=== PATIENT | female | born 1965 | race African-American/Black ===

== ENCOUNTER 2017-09-25 16:47 | Emergency (ER) | payer MEDICAID, OTHER ==
[~2017-09-25] VITALS: Ht 154.9 cm; Wt 79.5 kg
[~2017-09-25 16:47] MED LIST: CHOL20002 PO; DIVA500T35 PO; GABA-531 PO; METF500T PO; SERT50TA12 PO
[2017-09-25 17:18] LABS: GLUCOSE,POINT OF CARE 128 MG/DL (70-110)
[2017-09-25 17:53] LABS: BASOPHILS # (AUTO) 0.04 K/uL (0.00-0.20); EOSINOPHILS # (AUTO) 0.05 K/uL (0.00-0.70); EOSINOPHILS % (AUTO) 1.22 % (1.0-6.0); HEMATOCRIT 41.5 % (36-46); HEMOGLOBIN 13.2 g/dL (12.0-16.0); LYMPHOCYTES # (AUTO) 1.9 K/uL (1.0-4.8); LYMPHOCYTES % (AUTO) 44.6 % (22.0-44.0); MEAN CORPUSCULAR HGB CONC 31.7 G/dL (31.0-37.0); MEAN CORPUSCULAR VOLUME 88 fL (80-100); MONOCYTES # (AUTO) 0.3 K/uL (0.1-1.0); MONOCYTES % (AUTO) 7.3 % (2.0-9.0); NEUTROPHILS % (AUTO) 45.8 % (40.0-70.0); PLATELET COUNT (AUTO) 322 K/uL (150-450); RED CELL DISTRIBUTION WIDTH 18.9 % (11.5-14.5)
[2017-09-25 17:58] LABS: ANION GAP 9 mmol/L (8-16); CALCIUM, TOTAL 9.3 mg/dL (8.8-10.5); CARBON DIOXIDE 30 mmol/L (22-29); CHLORIDE 100 mmol/L (98-107); CREATININE 0.64 mg/dL (0.60-1.30); GLOMERULAR FILTR. RATE CALC > 60 mL/min (>60); GLUCOSE,RANDOM 111 mg/dL (70-110); SODIUM SERUM 139 mmol/L (136-145); UREA NITROGEN, BLOOD 11 mg/dL (7-18)
[2017-09-25 18:04] LABS: ALANINE AMINOTRANSFERASE 13 U/L (12-78); ALBUMIN 3.7 g/dL (3.4-5.0); ALKALINE PHOSPHATASE 101 U/L (46-116); ASPARTATE AMINOTRANSFERASE 12 U/L (15-37); TOTAL PROTEIN, SERUM 8.1 g/dL (6.4-8.2)
[2017-09-25 18:16] LABS: BILIRUBIN,TOTAL 0.1 mg/dL (0.1-1.0)
[2017-09-25] MEDS ORDERED: LORazepam 2 MG/ML VIAL IVP ONE (21:30)
[2017-09-25] MEDS ORDERED: MORPHINE SULFATE 2 MG/ML SYRINGE IVP ONE (21:30)
[2017-09-25] MEDS ORDERED: ASPIRIN 325 MG EC TABLET PO ONE (21:30)
[2017-09-25 23:45] VITALS: BP 105/74
== END 2017-09-25 23:57 | disposition home or self-care (01) ==
LOC: EMS 16:48
DX: R07.89 Other chest pain (principal); E11.9 Type 2 diabetes mellitus without complications; R06.02 Shortness of breath; F20.9 Schizophrenia, unspecified; I10 Essential (primary) hypertension; F17.210 Nicotine dependence, cigarettes, uncomplicated; G43.909 Migraine, unspecified, not intractable, without status migrainosus; Z88.8 Allergy status to other drugs, medicaments and biological substances
CPT/HCPCS: 36415; 71045; 80053; 82962; 84484; 85025; 85379; 93005; 96374; 96375; 99285; J2060; J2270

== ENCOUNTER 2018-08-03 20:06 | Emergency (ER) | payer OTHER ==
[~2018-08-03 20:06] MED LIST changes: -DIVA500T35 PO; -GABA-531 PO
== END 2018-08-03 21:00 | disposition left against medical advice (07) ==
LOC: EMS 20:07
DX: Z00.00 Encounter for general adult medical examination without abnormal findings (principal); Z53.21 Procedure and treatment not carried out due to patient leaving prior to being seen by health care provider

== ENCOUNTER 2018-12-09 16:38 | Emergency (ER) | payer OTHER ==
[~2018-12-09] VITALS: Ht 160 cm; Wt 104.5 kg
[2018-12-09 17:44] LABS: GLUCOSE,POINT OF CARE 146 MG/DL (70-110)
[2018-12-09] MEDS ORDERED: PERTUSS(ACELL),DIPH,TET VAC/PF 0.5 ML VIAL IM ONE (18:30)
[2018-12-09] MEDS ORDERED: TraMADol HCL 50 MG TABLET PO ONE (18:30)
[2018-12-09] MEDS ORDERED: BACITRACIN 0.9 GM PACKET OINTMENT TP ONE (18:30)
[2018-12-09] MEDS ORDERED: ACETAMINOPHEN 500 MG TABLET PO ONE (18:30)
[2018-12-09 18:49] VITALS: BP 144/71
== END 2018-12-09 19:07 | disposition home or self-care (01) ==
LOC: EMS 16:40
DX: S01.81XA Laceration without foreign body of other part of head, initial encounter (principal); I10 Essential (primary) hypertension; E11.9 Type 2 diabetes mellitus without complications; F20.9 Schizophrenia, unspecified; F17.210 Nicotine dependence, cigarettes, uncomplicated; Z91.012 Allergy to eggs; Z88.8 Allergy status to other drugs, medicaments and biological substances; Z79.84 Long term (current) use of oral hypoglycemic drugs; W25.XXXA Contact with sharp glass, initial encounter; Y93.89 Activity, other specified; Y92.89 Other specified places as the place of occurrence of the external cause; Y99.8 Other external cause status
CPT/HCPCS: 90471; 90715; 99406

== ENCOUNTER 2019-11-04 14:17 | Emergency (ER) | payer OTHER ==
[~2019-11-04] VITALS: Ht 172.7 cm; Wt 106.8 kg
[2019-11-04] MEDS ORDERED: QUET100T PO (14:29)
[2019-11-04] MEDS ORDERED: DIPH25CA85 PO (14:29)
[2019-11-04 14:37] LABS: GLUCOSE,POINT OF CARE 107 MG/DL (70-110)
[2019-11-04] MEDS ORDERED: KETOROLAC TROMETHAMINE 30 MG/ML VIAL IM ONE (16:00)
[2019-11-04] MEDS ORDERED: AMOX TR/POT CLAV 875 MG/125 MG TABLET PO ONE (16:00)
[2019-11-04 16:37] VITALS: BP 133/65
== END 2019-11-04 16:38 | disposition home or self-care (01) ==
LOC: EMS 14:21
DX: K04.7 Periapical abscess without sinus (principal); E11.9 Type 2 diabetes mellitus without complications; F31.9 Bipolar disorder, unspecified; F20.9 Schizophrenia, unspecified; I10 Essential (primary) hypertension; F17.210 Nicotine dependence, cigarettes, uncomplicated; F19.90 Other psychoactive substance use, unspecified, uncomplicated; Z88.8 Allergy status to other drugs, medicaments and biological substances; Z91.012 Allergy to eggs; Z79.84 Long term (current) use of oral hypoglycemic drugs
CPT/HCPCS: 82962; 96372; 99283; 99406; J1885

== ENCOUNTER 2019-11-26 11:01 | Emergency (ER) | payer OTHER ==
[~2019-11-26] VITALS: Ht 160 cm; Wt 100.0 kg
[~2019-11-26 11:01] MED LIST changes: -CHOL20002 PO; +DIPH25CA85 PO; +QUET100T PO; -SERT50TA12 PO
[2019-11-26 11:18] LABS: GLUCOSE,POINT OF CARE 233 MG/DL (70-110)
[2019-11-26] MEDS ORDERED: IBUPROFEN 600 MG TABLET PO ONE (12:15)
[2019-11-26] MEDS ORDERED: CLINDAMYCIN HCL 150 MG CAPSULE PO ONE (12:15)
[2019-11-26] MEDS ORDERED: ACETAMINOPHEN 500 MG TABLET PO ONE (12:15)
[2019-11-26 12:24] VITALS: BP 135/99
== END 2019-11-26 13:48 | disposition home or self-care (01) ==
LOC: EMS 11:02
DX: K02.9 Dental caries, unspecified (principal); K04.7 Periapical abscess without sinus; F31.9 Bipolar disorder, unspecified; I10 Essential (primary) hypertension; G43.909 Migraine, unspecified, not intractable, without status migrainosus; F20.9 Schizophrenia, unspecified; F17.210 Nicotine dependence, cigarettes, uncomplicated; F19.90 Other psychoactive substance use, unspecified, uncomplicated; E11.9 Type 2 diabetes mellitus without complications; Z18.9 Retained foreign body fragments, unspecified material; Z88.8 Allergy status to other drugs, medicaments and biological substances; Z91.012 Allergy to eggs; Z79.84 Long term (current) use of oral hypoglycemic drugs
CPT/HCPCS: 73552

== ENCOUNTER 2020-02-10 14:35 | Emergency (ER) | payer MEDICAID, OTHER ==
[~2020-02-10] VITALS: Ht 160 cm; Wt 86.4 kg
[2020-02-10 14:37] VITALS: BP 144/114
[2020-02-10 15:12] LABS: GLUCOSE,POINT OF CARE 151 MG/DL (70-110)
[2020-02-10] MEDS ORDERED: PROPARACAINE HCL 0.5% 15 ML OPHTHALMIC SOLUTION OU ONE (16:00)
[2020-02-10] MEDS ORDERED: FLUORESCEIN SODIUM 1 MG STRIP OU ONE (16:00)
== END 2020-02-10 16:52 | disposition home or self-care (01) ==
LOC: EMS 14:54
DX: S05.02XA Injury of conjunctiva and corneal abrasion without foreign body, left eye, initial encounter (principal); S05.01XA Injury of conjunctiva and corneal abrasion without foreign body, right eye, initial encounter; H10.89 Other conjunctivitis; E11.9 Type 2 diabetes mellitus without complications; F31.9 Bipolar disorder, unspecified; F20.9 Schizophrenia, unspecified; F17.210 Nicotine dependence, cigarettes, uncomplicated; F15.90 Other stimulant use, unspecified, uncomplicated; Z91.012 Allergy to eggs; Z88.8 Allergy status to other drugs, medicaments and biological substances; Z79.899 Other long term (current) drug therapy; X58.XXXA Exposure to other specified factors, initial encounter; Y93.89 Activity, other specified; Y92.89 Other specified places as the place of occurrence of the external cause; Y99.8 Other external cause status

== ENCOUNTER 2020-02-23 09:11 | Emergency (ER) | payer MEDICAID ==
[~2020-02-23] VITALS: Ht 160 cm; Wt 100.0 kg
[2020-02-23] MEDS ORDERED: CIPROFLOXACIN HCL 0.2%/HYDROCORT 1% 10 ML OTIC SUSPENSION AU ONE (10:30)
[2020-02-23] MEDS ORDERED: ACETAMINOPHEN 500 MG TABLET PO ONE (10:30)
[2020-02-23 11:20] VITALS: BP 131/87
== END 2020-02-23 11:19 | disposition home or self-care (01) ==
LOC: EMS 09:16
DX: T16.2XXA Foreign body in left ear, initial encounter (principal); E11.9 Type 2 diabetes mellitus without complications; I10 Essential (primary) hypertension; G43.909 Migraine, unspecified, not intractable, without status migrainosus; F20.9 Schizophrenia, unspecified; F17.210 Nicotine dependence, cigarettes, uncomplicated; F19.90 Other psychoactive substance use, unspecified, uncomplicated; Z88.8 Allergy status to other drugs, medicaments and biological substances; Z91.012 Allergy to eggs; Z79.84 Long term (current) use of oral hypoglycemic drugs; W45.8XXA Other foreign body or object entering through skin, initial encounter; Y93.89 Activity, other specified; Y92.89 Other specified places as the place of occurrence of the external cause; Y99.8 Other external cause status
CPT/HCPCS: 69200; Z7502; Z7610

== ENCOUNTER 2020-03-10 09:53 | Emergency (ER) | payer MEDICAID ==
[~2020-03-10] VITALS: Ht 160 cm; Wt 86.4 kg
[~2020-03-10 09:53] MED LIST changes: -DIPH25CA85 PO
[2020-03-10] MEDS ORDERED: KETOROLAC TROMETHAMINE 10 MG TABLET PO ONE (11:00)
[2020-03-10 12:26] VITALS: BP 124/91
== END 2020-03-10 12:29 | disposition home or self-care (01) ==
LOC: EMS 09:54
DX: S20.211A Contusion of right front wall of thorax, initial encounter (principal); F20.9 Schizophrenia, unspecified; I10 Essential (primary) hypertension; F31.9 Bipolar disorder, unspecified; E11.9 Type 2 diabetes mellitus without complications; F17.210 Nicotine dependence, cigarettes, uncomplicated; F12.90 Cannabis use, unspecified, uncomplicated; F15.90 Other stimulant use, unspecified, uncomplicated; Z91.012 Allergy to eggs; Z88.8 Allergy status to other drugs, medicaments and biological substances; W19.XXXA Unspecified fall, initial encounter; Y93.89 Activity, other specified; Y92.89 Other specified places as the place of occurrence of the external cause; Y99.8 Other external cause status

== ENCOUNTER 2020-06-04 14:25 | Emergency (ER) | payer MEDICAID ==
[~2020-06-04] VITALS: Ht 162.6 cm; Wt 90.9 kg
[2020-06-04] MEDS ORDERED: HYDROCODONE/ACETAMINOPHEN 10-325 MG TABLET PO ONE (15:45)
[2020-06-04] MEDS ORDERED: BACLOFEN 10 MG TABLET PO ONE (15:45)
[2020-06-04 16:02] VITALS: BP 100/58
== END 2020-06-04 16:18 | disposition home or self-care (01) ==
LOC: EMS 14:30
DX: R07.89 Other chest pain (principal); M54.5 Low back pain; G89.29 Other chronic pain; F17.210 Nicotine dependence, cigarettes, uncomplicated; F31.9 Bipolar disorder, unspecified; E11.9 Type 2 diabetes mellitus without complications; I10 Essential (primary) hypertension; G43.909 Migraine, unspecified, not intractable, without status migrainosus; F20.9 Schizophrenia, unspecified; F12.90 Cannabis use, unspecified, uncomplicated; F19.90 Other psychoactive substance use, unspecified, uncomplicated; Z88.8 Allergy status to other drugs, medicaments and biological substances; Z91.012 Allergy to eggs; Z79.84 Long term (current) use of oral hypoglycemic drugs
CPT/HCPCS: 93005; 99406

== ENCOUNTER 2020-06-20 15:09 | Emergency (ER) | payer MEDICAID ==
[~2020-06-20] VITALS: Ht 160 cm; Wt 81.8 kg
[2020-06-20 15:12] VITALS: BP 105/72
== END 2020-06-20 17:45 | disposition home or self-care (01) ==
LOC: EMS 15:09
DX: L21.9 Seborrheic dermatitis, unspecified (principal); H92.03 Otalgia, bilateral; F31.9 Bipolar disorder, unspecified; E11.9 Type 2 diabetes mellitus without complications; I10 Essential (primary) hypertension; G43.909 Migraine, unspecified, not intractable, without status migrainosus; F20.9 Schizophrenia, unspecified; F12.90 Cannabis use, unspecified, uncomplicated; F19.90 Other psychoactive substance use, unspecified, uncomplicated; Z88.8 Allergy status to other drugs, medicaments and biological substances; Z91.012 Allergy to eggs; Z79.84 Long term (current) use of oral hypoglycemic drugs